=== PATIENT | male | born 1960 | race Asian ===

== ENCOUNTER → 2016-10-23 | Day surgery (SDC) | payer OTHER ==
[~2016-10-23] VITALS: Ht 170.2 cm; Wt 6.0 kg
[~2016-10-23] MED LIST: LIPITOR
--- NOTE | 2016-10-26 18:37 | Operative Report ---
Operative/Inv Procedure Report Surgery Date: 10/23/16 Name of Procedure: Excision of recurrent inclusion cyst left ear Pre-Operative Diagnosis: Recurrent inclusion cyst left ear helix Post-Operative Diagnosis: Same Estimated Blood Loss: scant Surgeon/Glazier Stained Glass: CHAMP WEN,MARY Tesfaye Anesthesia: local monitored anesthesi Operative/Procedure Note Note: Patient was placed on the OR table supine after successful induction of anesthesia his head was turned to the right and the left periauricular area was clipped prepped and draped in usual sterile fashion IV antibiotics were already given second timeout was done and an elongated elliptical incision was made encompassing this multilobulated mass on the top of his helix adjacent to the scalp, this area was first infiltrated with local anesthetic without epinephrine , and then the incision was made through the very thin skin medially revealing the round lobulated cyst full of sebum but it tracked medially towards the junction of the ear and scalp and since it was a recurrence we spent time here dissecting to make sure there was no congenital deeper tracking which would be unusual in this spot, to do this after getting through the scarring from the previous excision we had to enlarge the incision medially onto the scalp to make sure we got the full extent of it dissected free and removed, and total this elongated cyst measured just under 3 cm. Used a needle tip cautery for hemostasis and reapproximated in layers using 5-0 Vicryl subdermally and then a running 5-0 nylon for the skin closure incision measured 3 cm this was followed by some bacitracin Telfa gauze cut to size and then tape. EBL minimal lap and sponge counts correct wound expectancy clean IV fluids crystalloid complications none patient tolerated the procedure well was awakened and returned to recovery room in satisfactory condition.
== END ==
LOC: STS 03:22
DX: L72.0 Epidermal cyst (principal); E78.5 Hyperlipidemia, unspecified; F17.200 Nicotine dependence, unspecified, uncomplicated
CPT/HCPCS: 88304; J0690; J2250